=== PATIENT | female | born 1970 | race Caucasian/White ===

== ENCOUNTER 2016-12-29 08:29 | Day surgery (SDC) | payer BC ==
[~2016-12-29 08:29] MED LIST: Bupivacaine 0.5% 50 ML MDV ONE; Lidocaine 1% with EPINEPHrine 1:100,000 50 ML MDV ONE
[2016-12-29] MEDS ORDERED: Bupivacaine 0.5% 50 ML MDV ONE (09:15)
[2016-12-29] MEDS ORDERED: Lidocaine 1% with EPINEPHrine 1:100,000 50 ML MDV ONE (09:15)
[2016-12-29] MEDS ORDERED: fentaNYL 100 MCG/2 ML SDV ONE ×2 (09:25→12:49)
[2016-12-29] MEDS ORDERED: Midazolam 1 MG/ML 2 ML SDV ONE (09:25)
[2016-12-29] MEDS ORDERED: Propofol 200 MG/20 ML SDV ONE ×2 (09:25→12:50)
[2016-12-29] MEDS: Dextrose 5%-Lactated Ringers 1,000 ML IV SCH (09:43)
[2016-12-29] MEDS ORDERED: ceFAZolin 2 GM in Premix Bag 1 BAG IV ONE (09:45)
[2016-12-29] MEDS ORDERED: Ketorolac 60 MG/2 ML SDV ONE (12:48)
[2016-12-29] MEDS ORDERED: Ondansetron 4 MG/2 ML SDV IVPUSH ONE (13:20)
[2016-12-29] MEDS ORDERED: hydrOXYzine HCl 100 MG/2 ML SDV IM ONE (13:30)
[2016-12-29] MEDS ORDERED: HYDROmorphone 1 MG/ML Syringe IVPUSH ONE (14:30)
[2016-12-29] MEDS ORDERED: Dextrose 5%-Lactated Ringers 1,000 ML IV SCH (16:00)
[2016-12-29] MEDS ORDERED: Naloxone 0.4 MG/ML SDV IV PRN (16:46)
[2016-12-29] MEDS ORDERED: HYDROmorphone/Normal Saline 15 MG/30 ML PCA IV PRN (16:46)
[2016-12-29] MEDS ORDERED: Ondansetron 4 MG/2 ML SDV IVPUSH PRN (16:48)
[2016-12-30] MEDS: Dextrose 5%-Lactated Ringers 1,000 ML IV SCH (04:08)
[2016-12-30] MEDS: Acetaminophen/oxyCODONE 325-5 MG Tab PO PRN ×3 (04:22→09:17)
[2016-12-30 07:07] VITALS: BP 125/76
[2016-12-30] MEDS ORDERED: Pantoprazole 40 MG Tab.CR PO SCH (07:30)
[2016-12-30] MEDS ORDERED: Citalopram 20 MG Tab PO SCH (09:00)
--- NOTE | 2016-12-30 09:41 | DISCH ---
ADMISSION DIAGNOSES: Right inguinal hernia, status post Wilbert-en-Y gastric bypass surgery, unspecified surgical malabsorption, tobacco use disorder, anxiety, anemia, B12 deficiency, vitamin D deficiency, and blind right eye. DISCHARGE DIAGNOSIS: Open repair of right inguinal hernia. HISTORY: Elida Valerio is a 46-year-old female with right inguinal hernia, which has been getting larger and causing more discomfort. After preoperative evaluation and discussion of possible risks and possible complications, she wished to proceed with surgical procedure. HOSPITAL COURSE: Elida had her surgery on 12/29/2016. She had postoperative nausea, and she stayed in the hospital for observation. Her pain medication was switched from Dilaudid to Percocet. She tolerated the pain medicine better. Her activity was good. Oral intake was adequate, vital signs stable, and she was able to be discharged to home 12/30/2016. PHYSICAL EXAMINATION: GENERAL: Elida Valerio is a pleasant 46-year-old female. VITAL SIGNS: Height is 5 feet 5 inches. Weight is 203 pounds. TPR is 97.5, 52, 20, and blood pressure 125/76. HEENT: Negative. NECK: Supple. HEART: Regular rate and rhythm. LUNGS: Clear. ABDOMEN: Right groin dressing dry and intact. EXTREMITIES: Without peripheral edema. DISPOSITION: Discharged to home. CONDITION: Stable and improving. FOLLOWUP: With Hermila Torres PA-C, on 01/09/2017 at 9 a.m. DISCHARGE MEDICATIONS: New prescriptions; Percocet 5/325 mg 1 to 2 oral q.4 hours p.r.n. pain. Prescription written and already given to Elida. Biotin 1000 mcg p.o. daily, citalopram 20 mg oral daily, vitamin B12 2000 mcg sublingual, Vitron-C one tablet oral daily, multivitamin one chewable twice daily, omeprazole 20 mg p.o. daily, and vitamin B complex 1 daily. DISCHARGE DIET: Usual diet as tolerated. Drink 8 to 10 glasses of water a day. ACTIVITY: As tolerated. No lifting greater than 10 pounds for 6 weeks. Driving, do not drive while on pain medication. Shower/bathing, may shower. DISCHARGE INSTRUCTIONS: Notify provider if any fever, drainage, nausea, or vomiting. Keep site clean and dry. Put ketoconazole cream, thin layer, over incision and to infected area b.i.d. for 7 days.
--- NOTE | 2017-01-03 08:44 | ANES ---
DATE OF SERVICE: 12/29/2016 ADDENDUM: I did give her 4 mL of fentanyl and 2 mg of Versed total for the case. At 1255 hours, I gave her 2 mL fentanyl and I documented as 2 mg of Versed, which should be 2 mL of fentanyl instead of 2 mg of Versed. Sidney Menendez CRNA /[id number]
--- NOTE | 2017-01-06 13:45 | OR ---
DATE OF PROCEDURE: 12/29/2016 PREOPERATIVE DIAGNOSIS: Right inguinal hernia. POSTOPERATIVE DIAGNOSES: 1. Incarcerated sliding right inguinal hernia. 2. Right ilioinguinal nerve at risk for scar entrapment and postoperative neuropathic pain. OPERATIVE PROCEDURE: 1. Repair of incarcerated sliding right inguinal hernia (32495). 2. Division of the right ilioinguinal nerve (21101). ANESTHESIA: Local plus IV sedation. REPAIR SPECIALIST: 1. Hermila Torres PA-C. 2. MADISON Benavides, as in PA student. INDICATION FOR PROCEDURE: A 46-year-old presenting with what appears to be a right inguinal hernia. Plan is to proceed with repair of this using mesh plug technique. Potential risks including bleeding, infection, recurrence of the hernia, injury to underlying viscera were all reviewed, and the patient wishes to proceed. DETAILS OF PROCEDURE: The patient was taken to the operating room and placed in a supine position. After IV sedation was administered, the abdomen and groin areas were prepped and draped. The right inguinal area was then anesthetized with 1% lidocaine mixed with Marcaine. This area had some involvement by some fungal overgrowth due to the patient's pannus in that area. The area was anesthetized with 1% lidocaine mixed with Marcaine and a standard inguinal incision was made and carried down through the skin and subcutaneous tissue and through the external oblique aponeurosis in line with the external ring. This was divided and then reflected inferiorly and superiorly. The ilioinguinal nerve lay more or less directly underneath the plane of where the flat portion of the mesh plug system would be placed. Given this, this was felt to be at high risk for entrapment by scar postoperatively with chronic neuropathic pain developing, and therefore, it was divided and then excised at a point in the lateral aspect of the incision. The patient was noted to have an indirect hernia. As this was dissected free from the surrounding soft tissues down to the level of the internal ring, it was noted to have what appeared to be some urinary bladder within it, that would be acting as a sliding component to the inguinal hernia. This otherwise had been incarcerated. As it was dissected free, it was eventually reduced. An extra large mesh plug was then placed into the defect and affixed to the Gordon's ligament inferiorly with the titanium tapping screws to the underside of the conjoint tendon medially, laterally, superiorly, with horizontal mattress sutures of 0 Vicryl stitch. The conjoint tendon was then approximated to the shelving portion of the inguinal ligament with a running 0 Vicryl stitch. The flat portion of the mesh plug system was laid across the area of the closure in the inguinal floor. Over this, the external oblique aponeurosis was approximated with some 3-0 Vicryl stitch, as was Padmini's fascia, and the skin closed with david. Because of the fungal overgrowth in that area, the patient had ketoconazole cream placed over the incision, and will be sent home with that. This was also the reason david were used, so there would not be any persistently covered skin. The patient was taken to the recovery room in satisfactory condition. Physician assistant director of financial aid, Hermila Torres played an essential role in assisting in this case, helping to position the patient, retract structures as needed, as well as suturing and cutting sutures as indicated. Her presence improved patient safety and decreased operative time. Eduin Ybarra MD /[id number]
== END 2016-12-30 10:07 | disposition home or self-care (01) ==
LOC: JP.SDS 08:29 → JP.MS 15:40 → JP.SDS 12-30 10:07
PROVIDERS: ATTEND Surgery
DX: K40.30 Unilateral inguinal hernia, with obstruction, without gangrene, not specified as recurrent (principal); F17.210 Nicotine dependence, cigarettes, uncomplicated; F41.9 Anxiety disorder, unspecified; D64.9 Anemia, unspecified; E53.8 Deficiency of other specified B group vitamins; E55.9 Vitamin D deficiency, unspecified; F32.9 Major depressive disorder, single episode, unspecified; E66.9 Obesity, unspecified; K91.2 Postsurgical malabsorption, not elsewhere classified; Z79.899 Other long term (current) drug therapy; Z98.84 Bariatric surgery status; Z90.49 Acquired absence of other specified parts of digestive tract; Z98.890 Other specified postprocedural states; Z68.33 Body mass index [BMI] 33.0-33.9, adult
CPT/HCPCS: 49507; 64772; 88305; A9270; C1781; J0690; J1170; J1885; J2250; J2405; J2704; J3010; J3410; J7042

== ENCOUNTER 2017-05-01 04:58 | Emergency (ER) | payer BC, OTHER ==
[2017-05-01 05:17] VITALS: BP 147/95
[2017-05-01] MEDS ORDERED: Diphtheria,Pertussis(Acell),Tetanus Vaccine 0.5 ML SDV IM ONE (05:27)
--- NOTE | 2017-05-01 05:35 | EDM.PDOC ---
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, bleeding is controlled by the time she arrived she has no functional complaints Treatments TOW MATE: Reports: Dressing(s) left thumb Pain Score (Numeric/FACES): 3 - Related Data Allergies Allergy/AdvReac Type Severity Reaction Status Date / Time meperidine HCl [From Demerol] AdvReac Vomiting Verified 05/01/17 05:06 adhesive tape Allergy Rash Uncoded 05/01/17 05:06 Home Meds: Home Meds Biotin 1,000 mg PO DAILY 12/11/13 [History] Iron,Carbonyl/Ascorbic Acid [Vitron-C Tablet] 1 tab PO DAILY 12/11/13 [History] Multivitamin [Flintstones] 2 each PO DAILY 12/11/13 [History] Vitamin B Complex [B Complex] 1 tab PO DAILY 12/11/13 [History] Cyanocobalamin (Vitamin B12) [Vitamin B12] 2,500 mcg SL DAILY 04/14/15 [History] Omeprazole 20 mg PO DAILY 04/14/15 [History] Citalopram [Citalopram HBr] 20 mg PO DAILY 12/29/16 [History] Cholecalciferol (Vitamin D3) [Vitamin D] 1,000 units PO DAILY 05/01/17 [History] Magnesium Oxide [Magnesium] 400 mg PO DAILY 05/01/17 [History] Past Medical History HEENT History: Reports: Cataract, Impaired Vision, Other (See Below) Other HEENT History: blind right eye due to injury as child Gastrointestinal History: Reports: Chronic Constipation, GERD, Hemorrhoids 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: , Other (See Below) Other OB/BYN History: left ovarian cysts Psychiatric History: Reports: Anxiety, Depression Endocrine/Metabolic History: Reports: Obesity/BMI 30+, Vitamin D Deficiency Hematologic History: Reports: Anemia, Iron Deficiency, Other (See Below) Other Hematologic History: iron infusion - Past Surgical History HEENT Surgical History: Reports: Oral Surgery GI Surgical History: Reports: Bariatric Procedure, Cholecystectomy, Colonoscopy , EGD, Esophageal Dilatation, Hernia, Inguinal, Small Bowel, Other (See Below) Other GI Surgeries/Procedures: twisted bowel with resection Social & Family History - Tobacco Use Smoking Status *Q: Current Every Day Smoker Years of Tobacco use: 26 Packs/Tins Daily: 0.5 Used Tobacco, but Quit: No Second Hand Smoke Exposure: No - Caffeine Use Caffeine Use: Reports: Soda - Alcohol Use Days Per Week of Alcohol Use: 0 - Recreational Drug Use Recreational Drug Use: No ED ROS GENERAL - Review of Systems Review Of Systems: See Below Constitutional: Reports: No Symptoms Skin: Reports: Wound ED EXAM, SKIN/RASH Exam: See Below Text/Narrative:: Examination of left hand she does have a appears to be a small stab wound on the lateral aspect of the thumb next the nail bed wound is approximately 4 mm in length, full range of motion of thumb no functional complaints radial pulse is +2 Exam Limited By: No Limitations General Appearance: Alert, WD/WN, No Apparent Distress ED SKIN PROCEDURES - Laceration/Wound Repair Left Finger Lac/Wound length In cm: 0.4 Appearance: Subcutaneous, Clean Distal NVT: Neuro & Vascular Intact, No Tendon Injury Exploration/Debridement/Repair: Other (Wound was closed) Closed with: Dermabond Tetanus Status Addressed: Yes (2007) Complications: No Course - Vital Signs Last Recorded V/S: Last Vital Signs Temp 98.0 F 05/01/17 05:14 Pulse 71 05/01/17 05:14 Resp 18 05/01/17 05:14 BP 147/95 H 05/01/17 05:14 Pulse Ox 97 05/01/17 05:14 - Orders/Labs/Meds Orders: Active Orders 24 hr Category Date Time Status Vaccines to be Administered [RC] PER UNIT ROUTINE Care 05/01/17 05:27 Ordered Meds: Medications Discontinued Medications Generic Name Dose Route Start Last Admin Trade Name Freq PRN Reason Stop Dose Admin Diphtheria/Tetanus/Acell Pertussis 0.5 ml 05/01/17 05:27 Adacel IM 05/01/17 05:28 .ONCE ONE Departure - Departure Time of Disposition: 05:35 Disposition: Home, Self-Care 01 Condition: Good Clinical Impression: Thumb laceration Qualifiers: Encounter type: initial encounter Damage to nail status: without damage Foreign body presence: without foreign body Laterality: left Qualified Code(s): S61.012A - Laceration without foreign body of left thumb without damage to nail , initial encounter - Discharge Information Referrals: PCP,None [Primary Care Provider] - Additional Instructions: Follow-up with primary care as needed call return to the emergency department worsening of symptoms - My Orders Last 24 Hours: My Active Orders 05/01/17 05:27 Vaccines to be Administered [RC] PER UNIT ROUTINE - Assessment/Plan Last 24 Hours: My Active Orders 05/01/17 05:27 Vaccines to be Administered [RC] PER UNIT ROUTINE Plan: Assessment Acuity = acute Site and laterality = laceration left thumb 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
== END 2017-05-01 05:39 | disposition home or self-care (01) ==
LOC: JP.ED 04:58
DX: S61.012A Laceration without foreign body of left thumb without damage to nail, initial encounter (principal); D64.9 Anemia, unspecified; F17.210 Nicotine dependence, cigarettes, uncomplicated; Z91.09 Other allergy status, other than to drugs and biological substances; Z88.5 Allergy status to narcotic agent; Z23 Encounter for immunization; W26.8XXA Contact with other sharp object(s), not elsewhere classified, initial encounter
CPT/HCPCS: 12001; 90471; 90715; 99283-25